=== PATIENT | male | born 1950 | race Caucasian/White ===

== ENCOUNTER 2022-04-01 09:27 | Day surgery (SDC) | payer MEDICARE, MEDICAID ==
[~2022-04-01] VITALS: Ht 175.3 cm; Wt 90.9 kg
[2022-04-01 09:42] VITALS: BP 132/76
[2022-04-01] MEDS ORDERED: FLO0.4C PO (09:58)
[2022-04-01] MEDS ORDERED: QUET25TA PO (09:59)
[2022-04-01] MEDS ORDERED: fentaNYL/PF 50MCG/1 ML 2ML syringe ONE (10:00)
[2022-04-01] MEDS ORDERED: MIDAZolam 1 MG/ML 5ML VIAL ONE ×2 (10:00)
[2022-04-01] MEDS ORDERED: ALPRAZOLAM PO (10:02)
[2022-04-01] MEDS ORDERED: LISI40TA13 PO (10:03)
[2022-04-01] MEDS ORDERED: LACT10SO57 PO (10:04)
[2022-04-01] MEDS ORDERED: FLUT1BLS4 INH (10:05)
[2022-04-01] MEDS ORDERED: FLUT16SP11 BOTHNARES (10:08)
[2022-04-01] MEDS ORDERED: FISH OIL PO (10:10)
[2022-04-01] MEDS ORDERED: VITAMIN D3 PO (10:11)
[2022-04-01 12:11] VITALS: BP 129/74
[2022-04-01 12:21] VITALS: BP 116/79
[2022-04-01 12:31] VITALS: BP 122/69
[2022-04-01 12:41] VITALS: BP 133/65
== END 2022-04-01 12:50 | disposition home or self-care (01) ==
LOC: GI LAB 09:27
PROVIDERS: ATTEND Internal Medicine Gastroenterology
DX: Z08 Encounter for follow-up examination after completed treatment for malignant neoplasm (principal); K63.5 Polyp of colon; K57.30 Diverticulosis of large intestine without perforation or abscess without bleeding; K64.8 Other hemorrhoids; Z86.010 Personal history of colon polyps
CPT/HCPCS: 45385; C1773; G0500; J2250; J3010; J7030; Z7512; 99152; 99153; A4620